=== PATIENT | male | born 1965 | race Caucasian/White ===

== ENCOUNTER 2018-07-22 14:19 | Emergency (ER) | payer OTHER ==
--- NOTE | 2018-07-22 14:39 | PDOC ---
Rapid Medical Evaluation Time Seen by Provider: 07/22/18 14:37 Medical Evaluation: Allergies Allergy/AdvReac Type Severity Reaction Status Date / Time No Known Allergies Allergy Verified 06/20/16 21:22 07/22/18 14:37 I have performed a brief in-person evaluation of this patient. The patient presents with a chief complaint of:L thumb laceration today Pertinent physical exam findings:deferred to FT team I have ordered the following:tetanus The patient will proceed to the ED for further evaluation. Discharge Disposition - Diagnosis Finger laceration Qualifiers: Encounter type: initial encounter Finger: thumb Damage to nail status: without damage Foreign body presence: without foreign body Laterality: left Qualified Code(s): S61.012A - Laceration without foreign body of left thumb without damage to nail, initial encounter - Referrals - Patient Instructions - Post Discharge Activity
[2018-07-22] MEDS ORDERED: DIPHTH,PERTUSS(ACELL),TET 0.5 ML DISP.SYRIN IM ONE ×2 (14:40→14:59)
[2018-07-22 14:41] VITALS: BP 99/73; PULSE 82; TEMP 98.7; BMI 22.2
[2018-07-22] MEDS ORDERED: LIDOCAINE HCL 2% (50ML VIAL) SQ ONE (15:08)
[2018-07-22] MEDS ORDERED: LIDOCAINE HCL 2% (20ML MULTI-DOSE VIAL) NR ONE (15:09)
--- NOTE | 2018-07-22 15:19 | PDOC ---
History of Present Illness - General Chief Complaint: Laceration Stated Complaint: LEFT HAND INJURY Time Seen by Provider: 07/22/18 14:37 History Source: Patient - History of Present Illness Initial Comments: 07/22/18 15:20 52 year old male c/o thumb tip avulsion while cutting vegatables with a kitchen knife. last tetanus unknown. full rom. Past History - Past Medical History Allergies/Adverse Reactions: Allergies Allergy/AdvReac Type Severity Reaction Status Date / Time Quinolones Allergy Verified 07/22/18 14:38 Home Medications: Ambulatory Orders Cephalexin Monohydrate [Keflex -] 500 mg PO BID #10 capsule 07/22/18 COPD: No GI Disorders: Yes () - Immunization History Td Vaccination: No (2004) - Suicide/Smoking/Psychosocial Hx Smoking Status: No Smoking History: Former smoker Years of Tobacco Use: 12 Have you smoked in the past 12 months: No Number of Cigarettes Smoked Daily: 20 Information on smoking cessation initiated: No Hx Alcohol Use: No Drug/Substance Use Hx: No *Physical Exam - Vital Signs Last Vital Signs Temp Pulse Resp BP Pulse Ox 98.7 F 82 19 99/73 97 07/22/18 14:38 07/22/18 14:38 07/22/18 14:38 07/22/18 14:38 07/22/18 14:38 - Physical Exam General Appearance: Yes: Appropriately Dressed Extremity: positive: Other (left thumb finger tip avulsion. ) Moderate Sedation - Procedure Monitoring Vital Signs: Procedure Monitoring Vital Signs Temperature 98.7 F 07/22/18 14:38 Pulse Rate 82 07/22/18 14:38 Respiratory Rate 19 07/22/18 14:38 Blood Pressure 99/73 07/22/18 14:38 O2 Sat by Pulse Oximetry (%) 97 07/22/18 14:38 Procedures - Laceration/Wound Repair Finger Wound Length: to 2.5 cm (avulsion thumb) Irrigated w/ Saline: Yes Betadine Prep: Yes Sterile Dressing Applied: Yes (pressure dressing applied) Progress Note - Progress Note Progress Note: A: finger tip avulsion P: see procedure note antibiotic empircally tetanus ' close pcp follow up for wound check and strict retun prrecautions reviewed with patient *DC/Admit/Observation/Transfer Diagnosis at time of Disposition: Fingertip avulsion Qualifiers: Encounter type: initial encounter Qualified Code(s): S61.209A - Unspecified open wound of unspecified finger without damage to nail, initial encounter - Discharge Dispostion Disposition: HOME Condition at time of disposition: Improved - Prescriptions Prescriptions: Cephalexin Monohydrate [Keflex -] 500 mg PO BID #10 capsule - Referrals Referrals: ON STAFF,NOT [Non Staff, Medical] - - Patient Instructions Printed Discharge Instructions: DI for Avulsion Laceration (Not Requiring Sutures) Additional Instructions: take cephalexin as prescribed. it is very important that you follow up with your doctor in 2 days for a wound check. you may take tylenol for pain please keep wound clean and dry. do not remove dressing for at least 48 hours. Additional Instructions: * Please call your personal physician to report your Emergency Department visit and to report your progress, if any. * If there is no improvement in symptoms in 2 days call your physician. * Return to the Emergency Department for any worsening symptoms. - Post Discharge Activity Forms/Work/School Notes: Back to Work
== END 2018-07-22 15:32 | disposition home or self-care (01) ==
LOC: JERFT 14:19
PROC: 3E0234Z Introduction of Serum, Toxoid and Vaccine into Muscle, Percutaneous Approach (ICD-10-PCS; principal; 2018-07-22)
DX: S61.012A Laceration without foreign body of left thumb without damage to nail, initial encounter (principal); W26.0XXA Contact with knife, initial encounter; Y93.G9 Activity, other involving cooking and grilling; Y92.010 Kitchen of single-family (private) house as the place of occurrence of the external cause; Y99.8 Other external cause status
CPT/HCPCS: 90471; 90715; 99281-25

== ENCOUNTER 2020-03-25 10:52 | Emergency (ER) | payer OTHER ==
[2020-03-25 11:13] VITALS: BP 133/74; PULSE 71; TEMP 99; BMI 242.7
[2020-03-25] MEDS ORDERED: KETOROLAC TROMETHAMINE 60 MG/2 ML VIAL IM ONE (11:23)
[2020-03-25] MEDS ORDERED: LIDOCAINE 5% TOPICAL PATCH TP ONE (11:23)
[2020-03-25] MEDS ORDERED: KETOROLAC TROMETHAMINE 60 MG/2 ML VIAL ONE (11:24)
[2020-03-25] MEDS ORDERED: LIDOCAINE 5% TOPICAL PATCH ONE (11:24)
--- NOTE | 2020-03-25 11:46 | PDOC ---
History of Present Illness - General Chief Complaint: Pain Stated Complaint: R/SHOULDER PAIN Time Seen by Provider: 03/25/20 11:12 History Source: Patient - History of Present Illness Occurred: reports: other (2 weeks ago) Pain Location: reports: upper extremity Past History - Medical History Allergies/Adverse Reactions: Allergies Allergy/AdvReac Type Severity Reaction Status Date / Time Quinolones Allergy Verified 03/25/20 11:06 Home Medications: Ambulatory Orders Celecoxib [Celebrex -] 200 mg PO DAILY 03/25/20 Ibuprofen [Advil -] 400 mg PO QID 03/25/20 Lidocaine 5% Patch [Lidoderm Patch -] 1 patch TP DAILY #7 patch 03/25/20 COPD: No GI Disorders: Yes (GERD) - Surgical History Abdominal Surgery: Yes (hydroablation prostate) - Immunization History Td Vaccination: No (2004) - Psycho-Social/Smoking History Smoking Status: No Smoking History: Unknown if ever smoked Years of Tobacco Use: 12 Have you smoked in the past 12 months: No Number of Cigarettes Smoked Daily: 20 - Substance Abuse Hx (Audit-C & DAST Scrn) How often the patient has a drink containing alcohol: Monthly or less Score: In Men: 4 or > Positive; In Women: 3 or > Positive: 1 Screen Result (Pos requires Nsg. Audit-10AR): Negative In the last yr the pt used illegal drug/Rx for NonMed reason: No Score: Yes response is considered Positive: 0 Screen Result (Positive result requires Nsg. DAST-10): Negative Review of Systems - Review of Systems Musculoskeletal: Yes: Joint Pain. No: Joint Swelling Neurological: Yes: Tingling. No: Numbness, Weakness *Physical Exam - Vital Signs Last Vital Signs Temp Pulse Resp BP Pulse Ox 99 F 71 18 133/74 99 03/25/20 11:07 03/25/20 11:07 03/25/20 11:03/25/20 11:03/25/20 11:07 - Physical Exam General Appearance: Yes: Appropriately Dressed. No: Apparent Distress HEENT: positive: Normal Voice Neck: positive: Supple Respiratory/Chest: negative: Respiratory Distress Extremity: positive: Normal Inspection, Normal Range of Motion. negative: Tender, Swelling Integumentary: positive: Dry, Warm Neurologic: positive: Fully Oriented, Alert, Normal Mood/Affect, Motor Strength 5/5 Medical Decision Making - Medical Decision Making 03/25/20 11:27 54 yo M, no sig hx, here with ongoing R shoulder pain after surfing 2 weeks ago. Pain located to shoulder blade and radiates to elbow w/ some tingling to RUE, no numbness or weakness. Taking pain meds, including narcotics, with no sig relief see exam RUE injury s/p surfing 2 weeks ago No fall Exam unremarkable Dc w/ pain control Pt to f/u with his own orthopedist Discharge - Discharge Information Problems reviewed: Yes Clinical Impression/Diagnosis: Shoulder injury Qualifiers: Encounter type: initial encounter Laterality: right Qualified Code(s): S49.91XA - Unspecified injury of right shoulder and upper arm, initial encounter Condition: Good Disposition: HOME - Additional Discharge Information Prescriptions: Lidocaine 5% Patch [Lidoderm Patch -] 1 patch TP DAILY #7 patch - Follow up/Referral Referrals: Manny Louis MD [Primary Care Provider] - - Patient Discharge Instructions Patient Printed Discharge Instructions: DI for Shoulder Sprain Additional Instructions: Take medications as directed Please follow up with your orthopedics - Post Discharge Activity
[2020-03-25] MEDS ORDERED: LIDOCAINE PATCH REMOVAL MC SCH (22:00)
== END 2020-03-25 11:34 | disposition home or self-care (01) ==
LOC: JER 10:52 → JERFT 10:52
PROC: 3E0233Z Introduction of Anti-inflammatory into Muscle, Percutaneous Approach (ICD-10-PCS; principal; 2020-03-25)
DX: S49.91XA Unspecified injury of right shoulder and upper arm, initial encounter (principal)
CPT/HCPCS: 99284-25

== ENCOUNTER 2020-07-18 09:18 | Emergency (ER) | payer OTHER ==
[2020-07-18] MEDS ORDERED: SODIUM CHLORIDE 1,000 ML IV STA (09:39)
[2020-07-18 09:56] VITALS: TEMP 97.7; BMI 21.9
[2020-07-18 10:17] LABS: BASO % 1.2 % (0-2.0); EOS % 1.3 % (0-4.5); HEMATOCRIT 43.7 % (35.4-49); LYMPH % 20.6 % (8-40); MCH 30.2 pg (25.7-33.7); MCHC 34.4 g/dl (32.0-35.9); MEAN CELL VOLUME 87.8 fl (80-96); MEAN PLT VOLUME 7.1 fl (7.5-11.1); MONO % 5.5 % (3.8-10.2); NEUT % 71.4 % (42.8-82.8); PLATELET COUNT 252 K/MM3 (134-434); RBC 4.97 M/mm3 (4.00-5.60); RDW 13.4 % (11.9-15.9); WHITE BLOOD COUNT 6.6 K/mm3 (4.0-10.0)
[2020-07-18 10:24] LABS: INR 1.03 (0.83-1.09); PROTHROMBIN TIME (PATIENT) 12.6 SEC (9.7-13.0)
[2020-07-18 10:27] LABS: ACTIVATED PTT 28.3 SECONDS (25.2-36.5)
[2020-07-18 10:40] LABS: CHLORIDE 108 mmol/L (98-107); POTASSIUM 3.9 mmol/L (3.5-5.1); SODIUM 144 mmol/L (136-145)
[2020-07-18 10:42] LABS: ALBUMIN 4.2 g/dl (3.4-5.0); ANION GAP 8 MMOL/L (8-16); CALCIUM 9.5 mg/dL (8.5-10.1); CO2 28 mmol/L (21-32)
[2020-07-18 10:43] LABS: BLOOD UREA NITROGEN 18.1 mg/dL (7-18); GLUCOSE,RANDOM 108 mg/dL (74-106); MAGNESIUM 1.7 mg/dL (1.8-2.4)
[2020-07-18 10:46] LABS: CREATININE 1.1 mg/dL (0.55-1.3); SGOT/AST 13 U/L (15-37); SGPT/ALT 25 U/L (13-61)
[2020-07-18 10:47] LABS: BILIRUBIN,TOTAL 0.8 mg/dL (0.2-1); TOT PROT 7.4 g/dl (6.4-8.2)
[2020-07-18 10:49] LABS: ALK PHOS 96 U/L (45-117)
[2020-07-18 12:00] LABS: N-TERMINAL BNP 14.1 pg/ml (5-125)
[2020-07-18 15:12] VITALS: BP 119/78; PULSE 78
== END 2020-07-18 15:00 | disposition home or self-care (01) ==
LOC: JER 09:18
PROC: 3E0337Z Introduction of Electrolytic and Water Balance Substance into Peripheral Vein, Percutaneous Approach (ICD-10-PCS; principal; 2020-07-18)
DX: R00.2 Palpitations (principal)
CPT/HCPCS: 36415; 71045-TC-FY; 80053; 83735; 83880; 84484; 85025; 85610; 85730; 93005; 93010; 99285-25; C9803; U0003